=== PATIENT | female | born 1960 | race Caucasian/White ===

== ENCOUNTER 2017-02-01 20:13 | Emergency (ER) | payer BC ==
[2017-02-01] MEDS ORDERED: Amoxicillin 500 MG Cap ONE (20:30)
--- NOTE | 2017-02-01 20:39 | EDM.PDOC ---
ED HPI GENERAL MEDICAL PROBLEM - General Chief Complaint: General Stated Complaint: tooth abscess Time Seen by Provider: 02/01/17 20:20 Source of Information: Reports: Patient History Limitations: Reports: No Limitations - History of Present Illness INITIAL COMMENTS - FREE TEXT/NARRATIVE: This 56 yr female presents with swelling to face and loss of filling to bottom left molar. States some pain, but not bad. States she has a to get to later this week. States allergic to Keflex and Demerol. Onset: Today Onset Date: 02/01/17 Onset Time: 11:00 Location: Reports: Face Severity: Mild Improves with: Reports: None Associated Symptoms: Reports: No Other Symptoms - Related Data Allergies Allergy/AdvReac Type Severity Reaction Status Date / Time cephalexin [From Keflex] Allergy Rash Verified 02/01/17 20:32 meperidine [From Demerol] Allergy Nausea Verified 02/01/17 20:33 Home Meds: Home Meds NK [No Known Home Meds] 02/01/17 [History] ED ROS GENERAL - Review of Systems Review Of Systems: See Below Constitutional: Reports: No Symptoms HEENT: Reports: Dental Pain, Other (swelling to face/cheek). Denies: Ear Pain, Eye Pain Respiratory: Reports: No Symptoms Cardiovascular: Reports: No Symptoms ED EXAM, GENERAL - Physical Exam Exam: See Below Exam Limited By: No Limitations General Appearance: Alert, WD/WN, No Apparent Distress Ears: Normal External Exam, Normal Canal, Other (Bulging TM to left) Ear Exam: Right Ear: TM normal, Left Ear: Canal Normal, TM Bulging Nose: Normal Inspection Throat/Mouth: Other (lymph nodes swellon to right neck) Head: Facial Swelling, Facial Tenderness Neck: Lymphadenopathy (L). No: Lymphadenopathy (R) Respiratory/Chest: No Respiratory Distress Neurological: Alert, Oriented Psychiatric: Normal Affect Skin Exam: Warm, Dry, Intact, Normal Color Course - Vital Signs Last Recorded V/S: Last Vital Signs Temp 97.4 F 02/01/17 20:21 Pulse 83 02/01/17 20:21 Resp 20 02/01/17 20:21 BP 155/109 H 02/01/17 20:21 Pulse Ox 99 02/01/17 20:21 - Re-Assessments/Exams Free Text/Narrative Re-Assessment/Exam: Abscess to left lower molar, loss of filling to tooth. Tooth is worn off to about level of gum to 2 teeth on bottom left and 1 molar on right. 02/01/17 20:41 Departure - Departure Time of Disposition: 20:45 Disposition: Home, Self-Care 01 Condition: Good Clinical Impression: Tooth abscess - Discharge Information Forms: ED Department Discharge - Assessment/Plan Assessment:: Abscess to left lower back molar. Plan: Recommend warm salt water gargle to mouth tid, Amoxicillin 500 mg po tid x 10 days. Recommend follow-up with dentist. Blood pressure elevated and recommend rechecking tomorrow.
== END 2017-02-01 20:49 | disposition home or self-care (01) ==
LOC: LB.ED 20:13
DX: K04.7 Periapical abscess without sinus (principal); Z88.8 Allergy status to other drugs, medicaments and biological substances; Z88.1 Allergy status to other antibiotic agents
CPT/HCPCS: 99283; A9270

== ENCOUNTER 2019-05-12 12:17 | Emergency (ER) | payer BC ==
[~2019-05-12 12:17] MED LIST: Sulfamethoxazole/Trimethoprim 800-160 MG Tab ONE
--- NOTE | 2019-05-12 14:10 | ER ---
REASON FOR EMERGENCY ROOM VISIT: Flank pain. HISTORY: This is a 58-year-old woman comes in with a 2-day history of lower abdominal suprapubic discomfort and right-sided flank pain. She thinks she may have had a fever 2 days ago with the onset of her symptoms, but she did not take her temperature. In the past, she has been told she has diverticulitis and colitis as well and had a normal colonoscopy 8 years ago. Her diagnosis is diverticulitis and was made on the basis of a CT scan and the same holds true for her diagnosis of colitis. She states that her stools have been slightly loose over the past 2 days, compared to normal. She rates the pain at a 3 on a scale of 1- 10. She has been taking Metamucil. She has noted some mild increased urinary urgency, but no dysuria or increased urinary frequency. She has not had any hematuria. She thinks her urine made look more cloudy now than unusual. She has not had any nausea or vomiting nor has she noticed any blood in her stool. PAST MEDICAL HISTORY: 1. History of diverticulitis and colitis. 2. Past history of UTI. 3. History of asthma, currently inactive. MEDICATIONS: None. ALLERGIES: KEFLEX AND DEMEROL. REVIEW OF SYSTEMS: Pertinent positives and negatives as listed in the HPI. PHYSICAL EXAMINATION: GENERAL: She is pleasant, alert, and in no acute distress. VITAL SIGNS: Her heart rate is elevated a bit at 115, but she states she is anxious; blood pressure 157/91; respiratory rate 16; O2 sats 92%. HEENT: No scleral icterus. Oropharynx is normal. NECK: Supple. No adenopathy. CHEST: Clear to auscultation. CARDIAC: Regular rate without murmur. ABDOMEN: Obese, nondistended. Bowel sounds are present. Her abdomen is soft to superficial and deep palpation with no tenderness, rebound, or guarding. She has no CVA tenderness. No palpable hepatosplenomegaly or other masses. LABORATORY DATA: Her CBC is normal with a WBC of 10.0, her hemoglobin is 15.6. Her CMP is unremarkable. Her urinalysis that is positive for leukocyte esterase, she has 10-20 wbc's per high-powered field, 0-5 rbc's per high-power field and a few bacteria. IMPRESSION: Urinary tract infection. PLAN: She was given Bactrim DS, dispense #6, 1 p.o. q.12 hours until all are gone. She was instructed that should her symptoms be persistent after 3 days of this that she should follow up with her provider, Dr. Ellis. Should she have any worsening of her symptoms, any fever or chills or increasing abdominal pain, she should return for another visit. I also had a long discussion with her about diverticulosis versus diverticulitis and gave her my recommendations on a high-fiber diet, etc. All questions were answered. She understands and agrees. BEULAH/DELANO /[id number]
== END 2019-05-12 13:30 | disposition home or self-care (01) ==
LOC: LB.ED 12:17
DX: N39.0 Urinary tract infection, site not specified (principal); J45.909 Unspecified asthma, uncomplicated; Z88.5 Allergy status to narcotic agent; Z88.1 Allergy status to other antibiotic agents
CPT/HCPCS: 36415; 80053; 81001; 85025; 99284; A9270

== ENCOUNTER → 2019-05-16 | Outpatient (CLI) | payer BC | LOC: LB.CLINIC 15:32 | PROVIDERS: ATTEND Nurse Practitioner Family | DX: R31.29 Other microscopic hematuria (principal) | CPT/HCPCS: 81001 ==

== ENCOUNTER 2022-10-10 19:00 | Emergency (ER) | payer BC ==
[2022-10-10] MEDS ORDERED: Amoxicillin 500 MG Cap ONE (22:00)
== END 2022-10-10 20:00 | disposition home or self-care (01) ==
LOC: LB.ED 19:00
DX: J30.9 Allergic rhinitis, unspecified (principal); J45.909 Unspecified asthma, uncomplicated; Z79.899 Other long term (current) drug therapy; Z88.1 Allergy status to other antibiotic agents; Z88.8 Allergy status to other drugs, medicaments and biological substances
CPT/HCPCS: 87430; 99283; A9270-GY